=== PATIENT | female | born 1955 | race Caucasian/White ===

== ENCOUNTER → 2017-12-23 | Outpatient (CLI) | payer OTHER | END | disposition home or self-care (01) | LOC: RAH 15:24 | PROVIDERS: ATTEND Obstetrics & Gynecology | DX: Z12.31 Encounter for screening mammogram for malignant neoplasm of breast (principal); N63.20 Unspecified lump in the left breast, unspecified quadrant | CPT/HCPCS: 77067 ==

== ENCOUNTER → 2020-01-29 | Outpatient (CLI) | payer OTHER | END | disposition home or self-care (01) | LOC: RAH 08:19 | PROVIDERS: ATTEND Internal Medicine | DX: C50.212 Malignant neoplasm of upper-inner quadrant of left female breast (principal); Z95.828 Presence of other vascular implants and grafts | CPT/HCPCS: 77065 ==

== ENCOUNTER → 2021-03-15 | Outpatient (CLI) | payer OTHER | END | disposition home or self-care (01) | LOC: RAH 12:49 | PROVIDERS: ATTEND Family Medicine | DX: R92.1 Mammographic calcification found on diagnostic imaging of breast (principal); Z90.12 Acquired absence of left breast and nipple | CPT/HCPCS: 77065 ==

== ENCOUNTER → 2023-05-02 | Outpatient (CLI) | payer MEDICARE, OTHER | END | disposition home or self-care (01) | LOC: RAH 14:27 | PROVIDERS: ATTEND Internal Medicine | DX: C50.212 Malignant neoplasm of upper-inner quadrant of left female breast (principal); R92.2 Inconclusive mammogram; Z85.3 Personal history of malignant neoplasm of breast | CPT/HCPCS: 77065 ==

== ENCOUNTER 2024-01-07 06:35 | Emergency (ER) | payer MEDICARE, OTHER ==
[~2024-01-07] VITALS: Ht 165.1 cm; Wt 103.0 kg
[2024-01-07 07:06] VITALS: BP 121/58; PULSE 113; RESP 18; O2SAT 97
[2024-01-07] MEDS: KETOROLAC 30MG VIAL (30MG/ML) IM ONE (07:26)
[2024-01-07] MEDS: ORPHENADRINE CITRATE 30 MG/ML ML IM STA (07:26)
[2024-01-07] MEDS ORDERED: GABA300S3 PO (08:29)
[2024-01-07] MEDS ORDERED: CYCL7.5T27 PO (08:29)
== END 2024-01-07 08:38 | disposition home or self-care (01) ==
LOC: EDH 06:35
DX: S29.012A Strain of muscle and tendon of back wall of thorax, initial encounter (principal); M62.838 Other muscle spasm; E03.9 Hypothyroidism, unspecified; Z98.890 Other specified postprocedural states; X58.XXXA Exposure to other specified factors, initial encounter; Y93.89 Activity, other specified; Y92.89 Other specified places as the place of occurrence of the external cause; Y99.8 Other external cause status
CPT/HCPCS: 99284; 72072; 96372 ×2; 93005; J1885; J2360

== ENCOUNTER → 2024-05-04 | Outpatient (CLI) | payer OTHER ==
[~2024-05-04] MED LIST: CYCL7.5T27 PO; GABA300S3 PO
== END | disposition home or self-care (01) ==
LOC: RAH 10:29
PROVIDERS: ATTEND Internal Medicine
DX: R92.321 Mammographic fibroglandular density, right breast (principal); C50.212 Malignant neoplasm of upper-inner quadrant of left female breast; Z85.3 Personal history of malignant neoplasm of breast
CPT/HCPCS: 77065

== ENCOUNTER → 2025-07-08 | Outpatient (CLI) | payer OTHER ==
--- NOTE | 2025-07-12 08:39 | HMCIMG ---
DIGITAL right breast DIAGNOSTIC MAMMOGRAM Technique: The digital mammographic examination of right breast in craniocaudal, mediolateral oblique views along with CAD was obtained. Left axillary view was also obtained. History: This is a 70 years year-old female 2, para2 Ab0 . Patient has history of left breast cancer with malignant invasive ductal carcinoma diagnosed in December 2017. Patient underwent chemotherapy in June 2018 followed by with radiation therapy. After this the patient underwent left breast mastectomy along with lymph node dissection in December 10, 2018. Patient has no family history of breast cancer. Patient has no complaint Reference:Prior mammogram from 05/04/2024, 05/02/2023, 05/01/2022, 03/15/2021 and 01/29/2020 is available.. Breast composition: Breast composition B: There are scattered areas of fibroglandular density. Finding: The digital mammographic examination of right breast in craniocaudal and mediolateral oblique view along with CAD demonstrates mildly dense. There is benign vascular calcification suggesting of atherosclerotic changes. The right axillary view demonstrated surgical clip there is no evidence of any recurrent tumor.. There is no evidence of any dendritic mass, cluster microcalcification or architectural distortion. The retromammary fat appears to be normal. IMPRESSION: Unchanged from prior mammography. NO RADIOGRAPHIC EVIDENCE OF MALIGNANT CHANGES. WE WOULD RECOMMEND ANNUAL FOLLOW UP WITH TOMOSYNTHESIS UNLESS OTHERWISE CLINICALLY INDICATED. FINAL ASSESSMENT: ACR: BI-RAD- 2. Benign Finding. NOTE: IF A WORK-UP OF THIS PATIENT LEADS TO A BIOPSY, PLEASE FORWARD A COPY OF THE PATHOLOGY REPORT TO OUR OFFICE REQUIRED BY [employer] E[employer]ECTIVE MAY 19, 1994. A NEGATIVE MAMMOGRAM SHOULD NOT PRECLUDE BIOPSY OF A CLINICALLY PALPABLE SUSPICIOUS MASS, 10% OF BREAST CANCERS ARE MAMMOGRAPHICALLY OCCULT. THIS MAMMOGRAPHY FACILITY IS FULLY ACCREDITED BY THE FOOD AND DRUG ADMINISTRATION (FDA). THANK YOU FOR THIS REFERRAL.
== END | disposition home or self-care (01) ==
LOC: RAH 13:46
PROVIDERS: ATTEND Internal Medicine
DX: C50.212 Malignant neoplasm of upper-inner quadrant of left female breast (principal); R92.323 Mammographic fibroglandular density, bilateral breasts
CPT/HCPCS: 77065